=== PATIENT | female | born 1955 | race Caucasian/White ===

== ENCOUNTER 2024-11-13 11:25 | Emergency (ER) | payer MEDICARE, OTHER | END 2024-11-13 12:47 | disposition home or self-care (01) | LOC: FB.ED 11:25 | DX: J45.909 Unspecified asthma, uncomplicated (principal); F17.210 Nicotine dependence, cigarettes, uncomplicated; Z79.899 Other long term (current) drug therapy | CPT/HCPCS: 71046; 87426; 94640; 99285; A9270 ==